=== PATIENT | male | born 1990 | race Caucasian/White ===

== ENCOUNTER 2022-05-22 13:53 | Emergency (ER) | payer OTHER ==
[2022-05-22] MEDS ORDERED: Bupivacaine 0.25% 10 ML VIAL ONE (15:10)
== END 2022-05-22 16:03 | disposition home or self-care (01) ==
LOC: ERS 13:53
DX: S61.111A Laceration without foreign body of right thumb with damage to nail, initial encounter (principal); W23.0XXA Caught, crushed, jammed, or pinched between moving objects, initial encounter
CPT/HCPCS: 11760; S0020